=== PATIENT | female | born 1965 | race American Indian/Alaskan Native ===

== ENCOUNTER 2017-06-22 08:26 | Day surgery (SDC) | payer MEDICAID ==
[2017-06-22] MEDS ORDERED: Lactated Ringer's 500 ML IV ONE (09:22)
[2017-06-22] MEDS ORDERED: Labetalol 5mg/ml (4ml) ONE (10:46)
[2017-06-22 10:50] VITALS: O2SAT 100
[2017-06-22] MEDS ORDERED: Propofol 10 mg/ml Inj (20 ML) ONE ×2 (11:17→12:06)
[2017-06-22] MEDS ORDERED: Etomidate 20 mg/10ml Inj IV ONE (11:17)
[2017-06-22 12:16] VITALS: TEMP 97.5
[2017-06-22 12:31] VITALS: BP 114/70; PULSE 78; RESP 22
== END 2017-06-22 12:59 | disposition home or self-care (01) ==
LOC: H.ENDO 08:26
PROVIDERS: ATTEND Internal Medicine Gastroenterology
DX: Z12.11 Encounter for screening for malignant neoplasm of colon (principal); I10 Essential (primary) hypertension; E66.9 Obesity, unspecified; D64.9 Anemia, unspecified; K64.2 Third degree hemorrhoids; K57.30 Diverticulosis of large intestine without perforation or abscess without bleeding
CPT/HCPCS: 45378; J2001; J2704; J7120

== ENCOUNTER 2017-11-09 20:57 | Emergency (ER) | payer MEDICAID ==
--- NOTE | 2017-11-09 23:37 | ED PDOC ---
Lower Extremity Pain/Injury Time Seen by Provider: 11/09/17 21:22 Chief Complaint (Nursing): Lower Extremity Problem/Injury Past Medical History Vital Signs: Last Vital Signs Temp 97.8 F 11/09/17 21:07 Pulse 84 11/09/17 21:07 Resp 16 11/09/17 21:07 BP 190/108 H 11/09/17 21:07 Pulse Ox 100 11/09/17 21:07 - Medical History PMH: Anemia, HTN Denies: Chronic Kidney Disease - Family History Family History: States: Unknown Family Hx - Home Medications Home Medications: Ambulatory Orders Medication Instructions Recorded Cetirizine HCl [Wal-Zyr] 10 mg PO DAILY 06/22/17 amLODIPine [Norvasc] 5 mg PO DAILY 06/22/17 - Allergies Allergies/Adverse Reactions: Allergies Allergy/AdvReac Type Severity Reaction Status Date / Time NUTS Allergy RASH Uncoded 06/22/17 09:51 - ECG O2 Sat by Pulse Oximetry: 100 Medical Decision Making Medical Decision Makin - Knee x-ray sent to [facility]. (+) posterior knee abnormality. Disposition - Clinical Impression Clinical Impression: Knee pain, Hypertension, Bakers cyst - Patient ED Disposition Is Patient to be Admitted: No - Disposition Disposition: Routine/Home Disposition Time: 00:39 Condition: GOOD Instructions: Fountain's Cyst (ED) Forms: [employer] (Burmese)
--- NOTE | 2017-11-09 23:57 | US ---
EXAM: US Duplex Right Lower Extremity Veins CLINICAL HISTORY: 52 years old, female; Pain; Leg, lower; Right; Additional info: Right calf pain, knee pain TECHNIQUE: Real-time ultrasound scan of the veins of the right lower extremity with color Doppler flow, spectral waveform analysis and compression. COMPARISON: No relevant prior studies available. FINDINGS: Deep veins: Unremarkable. No DVT in the visualized common femoral, femoral, proximal deep femoral or popliteal veins. The veins demonstrate normal color flow, are normally compressible, with normal phasic flow and/or augmentation response. Soft tissues: Fluid in the popliteal fossa measures 3.6 x 1.6 x 4.4 cm, possible Fountain's cyst. IMPRESSION: No right lower extremity deep venous thrombosis. Possible Fountain's cyst.
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
[2017-11-10 01:07] VITALS: BP 153/86; PULSE 81; RESP 17; TEMP 98; O2SAT 98
== END 2017-11-10 00:44 | disposition home or self-care (01) ==
LOC: H.ER 20:57
DX: M71.21 Synovial cyst of popliteal space [Baker], right knee (principal); I10 Essential (primary) hypertension

== ENCOUNTER 2018-11-08 09:22 | Emergency (ER) | payer SELFPAY ==
[2018-11-08 09:33] VITALS: RESP 18; TEMP 97.8
[2018-11-08 09:58] VITALS: O2SAT 98
--- NOTE | 2018-11-08 10:17 | ED PDOC ---
Upper Extremity Pain/Injury Time Seen by Provider: 11/08/18 09:56 Chief Complaint (Nursing): Upper Extremity Problem/Injury Chief Complaint (Provider): Upper Extremity Problem/Injury History Per: Patient History/Exam Limitations: no limitations Onset/Duration Of Symptoms: Persistent Current Symptoms Are (Timing): Still Present Additional Complaint(s): 53 year old female with a past medical history of hypertension and anemia who follows in the clinic and is presenting to the ED for evaluation of right hand pain localized to the thumb onset 4 years ago. 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 She denies any recent falls or trauma and admits that she once had an x- ray for it but it was normal. Patient states that she has not had any MRIs or specialist follow-up. PMD: Clinic Past Medical History Reviewed: Historical Data, Nursing Documentation, Vital Signs Vital Signs: Last Vital Signs Temp 97.8 F 11/08/18 09:27 Pulse 108 H 11/08/18 09:27 Resp 18 11/08/18 09:27 BP 170/107 H 11/08/18 09:27 Pulse Ox 98 11/08/18 09:56 - Medical History PMH: Anemia, HTN Denies: Chronic Kidney Disease - Surgical History Surgical History: No Surg Hx - Family History Family History: States: Unknown Family Hx - Social History Current smoker - smoking cessation education provided: No Alcohol: None Drugs: Denies - Home Medications Home Medications: Ambulatory Orders Medication Instructions Recorded Cetirizine HCl [Wal-Zyr] 10 mg PO DAILY 06/22/17 amLODIPine [Norvasc] 5 mg PO DAILY 06/22/17 RX: traMADol [Ultram] 50 mg PO Q6H PRN #15 tab 11/10/17 - Allergies Allergies/Adverse Reactions: Allergies Allergy/AdvReac Type Severity Reaction Status Date / Time NUTS Allergy RASH Uncoded 11/08/18 09:55 Review of Systems ROS Statement: Except As Marked, All Systems Reviewed And Found Negative Musculoskeletal: Positive for: Hand Pain Physical Exam - Reviewed Nursing Documentation Reviewed: Yes Vital Signs Reviewed: Yes - Physical Exam Appears: Positive for: Well, Non-toxic, No Acute Distress Head Exam: Positive for: ATRAUMATIC, NORMAL INSPECTION, NORMOCEPHALIC Skin: Positive for: Normal Color, Warm Cardiovascular/Chest: Positive for: Regular Rate, Rhythm. Negative for: Murmur Respiratory: Negative for: Respiratory Distress Pulses-Radial (L): 2+ Pulses-Radial (R): 2+ Extremity: Positive for: Capillary Refill (less than 2 seconds ), Swelling (edema over the thumb and index finger, slight edema over dorsum of the hand ). Negative for: Deformity Neurologic/Psych: Positive for: Alert, Oriented. Negative for: Motor/Sensory Deficits - ECG O2 Sat by Pulse Oximetry: 98 (RA) Pulse Ox Interpretation: Normal Medical Decision Making Medical Decision Making: Time: 10:10 Plan: --X-Ray right hand Explained to her that she may needs an outpatient MRI as xrays only look at bones, may need to follow up with specialist and orthopedist as further evaluation of ligaments is likely necessary. X-Ray: FINDINGS: BONES: The proximal carpal row is grossly abnormal Berna oriented and mineralized- scaphoid remote fracture scapholunate disruption. Capitate proximal migration an a clinical SLAC wrist is inferred. No fracture or lytic lesions of the thumb or 2nd the index finger noted. 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 There is mild 1st carpal metacarpal and 1st metacarpal phalangeal joint arthrosis. Minimal 2nd inter and distal interphalangeal joint arthrosis probably slightly more pronounced in the 2nd digit than the other digits. SOFT TISSUES: Normal. OTHER FINDINGS: None. IMPRESSION: Chronic changes as above. No acute fracture or lytic lesion noted. Patient had high blood pressure prior to discharge but she admits to a history of hypertension. She states that she is supposed to be taking medications. i nstructed her to follow up as outpatient as soon as possible and to resume taking her meds. she is agreeable and wants to go home. she was given hand splint for comfort Scribe Attestation: Documented by Alla Hamilton, acting as a scribe for Reena Solorzano MD. Provider Scribe Attestation: All medical record entries made by the Scribe were at my direction and personally dictated by me. I have reviewed the chart and agree that the record accurately reflects my personal performance of the history, physical exam, medical decision making, and the department course for this patient. I have also personally directed, reviewed, and agree with the discharge instructions and disposition. Disposition - Clinical Impression Clinical Impression: Hand pain, right - Patient ED Disposition Is Patient to be Admitted: No Counseled Patient/Family Regarding: Studies Performed, Diagnosis, Need For Followup - Disposition Referrals: Nba Hanley MD [Medical Doctor] - Disposition: Routine/Home Disposition Time: 12:40 Condition: IMPROVED Additional Instructions: follow up with orthopedic doctor this week return to the ED with any worsening or concerning symptoms take motrin for pain as needed Instructions: Hand Pain (DC) Forms: [facility] (German)
--- NOTE | 2018-11-08 10:44 | RAD ---
PROCEDURE: Right Hand Radiographs. HISTORY: chronic r hand pain cayla thumb and index finger COMPARISON: 12/30/2016 FINDINGS: BONES: The proximal carpal row is grossly abnormal Berna oriented and mineralized-scaphoid remote fracture scapholunate disruption. Capitate proximal migration an a clinical SLAC wrist is inferred. No fracture or lytic lesions of the thumb or 2nd the index finger noted. 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 There is mild 1st carpal metacarpal and 1st metacarpal phalangeal joint arthrosis. Minimal 2nd inter and distal interphalangeal joint arthrosis probably slightly more pronounced in the 2nd digit than the other digits. SOFT TISSUES: Normal. OTHER FINDINGS: None. IMPRESSION: Chronic changes as above. No acute fracture or lytic lesion noted.
[2018-11-08 12:33] VITALS: BP 155/94; PULSE 84
== END 2018-11-08 12:28 | disposition home or self-care (01) ==
LOC: H.ER 09:22
DX: M79.641 Pain in right hand (principal); I10 Essential (primary) hypertension

== ENCOUNTER 2019-03-01 10:41 | Emergency (ER) | payer MEDICAID, OTHER ==
[2019-03-01 10:48] VITALS: BMI 39.9
--- NOTE | 2019-03-01 11:24 | ED PDOC ---
HPI: General Adult Time Seen by Provider: 03/01/19 11:12 Chief Complaint (Nursing): Weakness/Neurological Deficit Chief Complaint (Provider): Weakness/Neurological Deficit History Per: Patient History/Exam Limitations: no limitations Onset/Duration Of Symptoms: Other (3 weeks) Additional Complaint(s): 53 y/o female presents to the ED complaining of left side neck pain and shoulder pain associated with numbness to his left hand thats been ongoing for 3 weeks. Patient states he stopped taking his blood pressure medication due to ability to afford it. Patient denies headaches, focal weakness, or difficulty breathing. PMD: None provided NIHSS Stroke Scale - Date/Time Evaluation Performed Date Performed: 03/01/19 Time Performed: 11:30 - How Severe is the Stroke Level of Consciousness: 0=Alert LOC to Questions: 0=Both comments correct LOC to commands: 0=Obeys both correctly Best Gaze: 0=Normal Visual: 0=No visual loss Facial: 0=Normal Motor Arm - Left: 0=No drift Motor Arm - Right: 0=No drift Motor Leg - Left: 0=No drift Motor Leg - Right: 0=No drift Limb Ataxia: 0=Absent Sensory: 0=Normal Best Language: 0=No aphasia Dysarthia: 0=Normal articulation Extinction & Inattention (Neglect): 0=Normal, no object Score: 0 Past Medical History Reviewed: Historical Data, Nursing Documentation, Vital Signs Vital Signs: Last Vital Signs Temp 98.1 F 03/01/19 10:45 Pulse 107 H 03/01/19 10:45 Resp 16 03/01/19 10:45 BP 151/97 H 03/01/19 11:07 Pulse Ox 99 03/01/19 10:45 Primary Care Provider: Doctor,Conversion - Medical History PMH: Anemia, HTN Denies: Chronic Kidney Disease - Family History Family History: States: Unknown Family Hx - Home Medications Home Medications: Ambulatory Orders Medication Instructions Recorded Cetirizine HCl [Wal-Zyr] 10 mg PO DAILY 06/22/17 amLODIPine [Norvasc] 5 mg PO DAILY 06/22/17 traMADol [Ultram] 50 mg PO Q6H PRN #15 tab 11/10/17 amLODIPine [Norvasc] 5 mg PO DAILY #30 tab 03/01/19 - Allergies Allergies/Adverse Reactions: Allergies Allergy/AdvReac Type Severity Reaction Status Date / Time NUTS Allergy RASH Uncoded 03/01/19 10:58 Review of Systems ROS Statement: Except As Marked, All Systems Reviewed And Found Negative Cardiovascular: Negative for: Chest Pain Respiratory: Negative for: Shortness of Breath Musculoskeletal: Positive for: Neck Pain (left side), Shoulder Pain (left) Neurological: Positive for: Numbness (Intermittent left hand.). Negative for: Headache Physical Exam - Reviewed Nursing Documentation Reviewed: Yes Vital Signs Reviewed: Yes - Physical Exam Appears: Positive for: Well, Non-toxic, No Acute Distress Head Exam: Positive for: ATRAUMATIC, NORMOCEPHALIC Skin: Positive for: Normal Color, Warm, Dry Eye Exam: Positive for: EOMI, Normal appearance, PERRL ENT: Positive for: Normal ENT Inspection Neck: Positive for: Normal, Painless ROM, Supple Cardiovascular/Chest: Positive for: Regular Rate, Rhythm. Negative for: Murmur Respiratory: Positive for: Normal Breath Sounds. Negative for: Wheezing Gastrointestinal/Abdominal: Positive for: Normal Exam, Soft. Negative for: Tenderness Back: Positive for: Normal Inspection. Negative for: L CVA Tenderness, R CVA Tenderness Extremity: Positive for: Normal ROM Neurological/Psych: Positive for: Awake, Alert, Normal Tone, Oriented (x3). Negative for: Motor/Sensory Deficits - Laboratory Results Result Diagrams: 03/01/19 15:00 - ECG O2 Sat by Pulse Oximetry: 99 Medical Decision Making Medical Decision Making: Time:1118 Initial Impression: Initial Plan: -CT -EKG CT revealed sellar enlargement. No visual disturbance or focal neuro deficits. Will refer to neurosurgery as well as [facility] for endocrine work-up. Scribe Attestation: Documented by Maria C Andrew, acting as a scribe for Michael Hopkins Provider Scribe Attestation: All medical record entries made by the Scribe were at my direction and personally dictated by me. I have reviewed the chart and agree that the record accurately reflects my personal performance of the history, physical exam, medical decision making, and the department course for this patient. I have also personally directed, reviewed, and agree with the discharge instructions and disposition. Disposition - Clinical Impression Clinical Impression: Hypertension, Cervical radiculopathy, Pituitary lesion - Patient ED Disposition Is Patient to be Admitted: No Counseled Patient/Family Regarding: Studies Performed, Diagnosis, Need For Followup, Rx Given - Disposition Referrals: [facility] [Outside] Gerry Vanegas MD [Staff Provider] - Disposition: Routine/Home Disposition Time: 17:39 Condition: FAIR Prescriptions: amLODIPine [Norvasc] 5 mg PO DAILY #30 tab Instructions: High Blood Pressure in Adults, Radiculopathy, Pituitary Adenoma Forms: [facility] (Palestinian)
--- NOTE | 2019-03-01 12:08 | CT ---
Date of service: 03/01/2019 PROCEDURE: CT HEAD WITHOUT CONTRAST. HISTORY: r/o bleed COMPARISON: None available. TECHNIQUE: Axial computed tomography images were obtained through the head/brain without intravenous contrast. Supplemental Coronal and Sagittal projections created and reviewed. Radiation dose: Total exam DLP = 804.81 mGy-cm. This CT exam was performed using one or more of the following dose reduction techniques: Automated exposure control, adjustment of the mA and/or kV according to patient size, and/or use of iterative reconstruction technique. FINDINGS: HEMORRHAGE: No intracranial hemorrhage. BRAIN: Hyperdense well-circumscribed mass in the sella measures 1.6 x 1.5 x 1.3 cm. The most common etiology would be pituitary macro adenoma. MRI may be beneficial for further evaluation. Follow-up therefore recommended. No atrophy or chronic microvascular ischemic changes. Incidental physiologic basal ganglia calcifications. VENTRICLES: Unremarkable. No hydrocephalus. CALVARIUM: Unremarkable. PARANASAL SINUSES: Unremarkable as visualized. No significant inflammatory changes. MASTOID AIR CELLS: Unremarkable as visualized. No inflammatory changes. OTHER FINDINGS: None. 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 MRI is the recommended follow-up procedure of choice. No acute findings related to/ accounting for the clinical presentation. Additional benign and/or incidental findings described above. COMMUNICATION OF RESULTS I discussed findings directly with the attending physician in the emergency department Dr. Hopkins at 23:59.
--- NOTE | 2019-03-01 12:10 | CT ---
Date of service: 03/01/2019 PROCEDURE: CT Cervical Spine without contrast HISTORY: Neck and shoulder pain, no history of trauma. COMPARISON: None available. TECHNIQUE: Axial computed tomography images were obtained of the cervical spine without the use of intravenous contrast. Coronal and sagittal reformatted images were created and reviewed. Radiation dose: Total exam DLP = 400.78 mGy-cm. This CT exam was performed using one or more of the following dose reduction techniques: Automated exposure control, adjustment of the mA and/or kV according to patient size, and/or use of iterative reconstruction technique. FINDINGS: VERTEBRAE: No fracture. Normal alignment. No destructive bony lesion. DISCS/SPINAL CANAL/NEURAL FORAMINA: No significant central canal or neural foraminal stenosis. Discs heights are grossly preserved. PARASPINAL SOFT TISSUES: Unremarkable. OTHER FINDINGS: None. IMPRESSION: Unremarkable CT of the cervical spine.
[2019-03-01] MEDS ORDERED: Sodium Chloride 0.9% 50 ML IV ONE (15:18)
[2019-03-01] MEDS ORDERED: Gadodiamide 287 MG/ML VIAL (15ML) IV ONE (15:18)
[2019-03-01 15:35] LABS: ALB/GLOB RATIO 1.2 (1.0-2.1); ALBUMIN 4.5 g/dL (3.5-5.0); ALT/SGPT 36 U/L (9-52); AST/SGOT 30 U/L (14-36); BLOOD UREA NITROGEN 7 mg/dl (7-17); CALCIUM 9.4 mg/dL (8.4-10.2); GFR NON-AFRICAN AMERICAN > 60
--- NOTE | 2019-03-01 16:19 | CARD ---
APPROVED REPORT Date of service: 03/01/2019 EKG Measurement Heart [id number] <Conclusion> Normal sinus rhythm Normal ECG
--- NOTE | 2019-03-01 17:54 | MRI ---
Date of service: 03/01/2019 PROCEDURE: MRI BRAIN AND PITUITARY WITH AND WITHOUT CONTRAST HISTORY: Pituitary enlargement on CT COMPARISON: None available. TECHNIQUE: Multiplanar, multisequence MR images of the pituitary glad were obtained, including high resolution sagittal T2 and dynamic, multiphasic contrast coronal T1 weighted images of the sellar turcica. FINDINGS: PITUITARY GLAND: There is homogeneously enhancing soft tissue mass extending from the sella to the suprasellar region consistent with pituitary macro adenoma. This mass measures 17.6 millimeter in the CC diameter 13.5 millimeter in the AP diameter. The mass is compressing and deviating the infundibulum. This mass also abuts the internal carotid arteries without evidence of encasement of compression. OPTIC CHIASM: The above mentioned pituitary mass abuts and slightly compresses on the optic chiasm SUPRASELLAR CISTERN: There is effacement of the suprasellar cistern CAVERNOUS SINUSES: Unremarkable. BRAIN (LIMITED): Incomplete study of the entire brain. Within this limitation, no gross mass or mass effect. VENTRICLES: Unremarkable. No hydrocephalus. OTHER FINDINGS: Mild mucosal thickening noted in the paranasal sinuses. Sub centimeter mucosal retention cyst versus polyp in the right maxillary sinus is noted. Small amount of fluid in the posterior aspect of the left maxillary sinus is noted. IMPRESSION: 17.6 x 13.5 millimeter homogeneously enhancing soft tissue mass lesion extending from the sella to the suprasellar region compatible with pituitary macroadenoma. Compression and deviation of the infundibulum and slight compression on the optic chiasm noted. Mild sinuses mucosal disease noted.
[2019-03-01 18:23] VITALS: BP 126/98; PULSE 78; RESP 17; TEMP 98; O2SAT 100
== END 2019-03-01 18:21 | disposition home or self-care (01) ==
LOC: H.ER 10:41
DX: M54.12 Radiculopathy, cervical region (principal); I10 Essential (primary) hypertension; Z79.899 Other long term (current) drug therapy
CPT/HCPCS: 70450; 70553; 72125; 80053; 93005; 99283; A9579